=== PATIENT | male | born 1955 | race Caucasian/White ===

== ENCOUNTER → 2020-11-24 07:47 | Outpatient (CLI) | payer MEDICARE, BC, SELFPAY ==
[2018-08-24 12:19] VITALS: BMI 29.0
--- NOTE | 2020-11-24 07:55 | AAVD_ITS ---
Reason For Study: AAA Aorta Measurements Aorta Doppler Measurements Proximal aorta measures1.96 X 1.93cm. in cross- Peak systolic flow velocities within the proximal sectional axis. aorta measure 86.2 cm/sec. Proximal aorta measures1.93cm. in longitudinal Peak systolic flow velocities within the mid aorta axis. measure 95.3 cm/sec. Mid aorta measures1.66 X 1.65cm. in cross- sectional axis. Mid aorta measures1.74cm. in longitudinal axis. Distal aorta measures1.98 X 1.97+cm. in cross- sectional axis. Distal aorta measures1.97cm. in longitudinal axis. Left Iliac Artery Left iliac artery measures 1.31 X 1.48 cm. in the longitudinal axis. Left iliac artery measures 1.4 cm. in the cross-sectional axis. Peak systolic velocity in the left iliac artery measures 104.5 cm/sec. Right Iliac Artery Right iliac artery measures 1.55 X 1.62 cm. in the longitudinal axis. Right iliac artery measures 1.5 cm. in the cross-sectional axis. Peak systolic velocity in the right iliac artery measures 91.7 cm/sec. Procedure Aorta IVC Iliac vasculature or bypass grafts 70614. Exam performed in department. VL/Abd Aortic/IVC Duplex scan Interpretation Summary Maximal aortic dimension distally at 1.98 x 1.97 cm in diameter which is normal . Normal aortic velocity flow. Left common neck 1.31 x 1.48 cm diameter normal Right common iliac 1.55 x 1.62 cm diameter normal Ordering Physician: Antoni Monte Referring Physician: Antoni Monte Performed By: Laila Luna, RDCS, RVT
== END ==
PROVIDERS: PCP Family Medicine; Referring Provider Family Medicine; Visit Provider Family Medicine
DX: Z13.6 Encounter for screening for cardiovascular disorders (principal); Z87.891 Personal history of nicotine dependence; I71.4 Abdominal aortic aneurysm, without rupture
CPT/HCPCS: 93978

== ENCOUNTER 2021-07-15 10:06 | Day surgery (SDC) | payer MEDICARE, BC, SELFPAY ==
[2021-07-15 10:41] VITALS: BP 127/75; PULSE 65; RESP 16; TEMP 36.8; O2SAT 96; BMI 30.7
[2021-07-15] MEDS: Lactated Ringers 1,000 ML 30 ML IV ×2 (11:11→13:15)
[2021-07-15 11:12] LABS: Hematocrit 40.7 % (40-54); Hemoglobin 13.8 g/dL (13.0-16.5); Mean Corp Hgb Conc 33.9 g/dL (32-36); Mean Corpuscular Hgb 29.1 pg (27.0-32.0); Mean Corpuscular Volume 85.9 fL (80-94); Mean Platelet Vol. 9.6 fl (6.2-12.0); Platelet Count 197 K/mm3 (150-450); RBC Distribution Width CV 14.4 % (11.6-14.6); RBC Distribution Width SD 45.1 fl (35.1-43.9); Red Blood Count 4.74 M/mm3 (4.6-6.2); White Blood Count 6.9 K/mm3 (4.4-11.0)
[2021-07-15 11:27] LABS: Anion Gap 4 (5-15); BUN 17 mg/dL (7-18); BUN/Creat Ratio 18.6 RATIO (10-20); Calcium,Total 8.8 mg/dL (8.5-10.1); Chloride 115 mmol/L (98-107); Creatinine, Serum 0.91 mg/dL (0.70-1.30); EST Glomerular Filtration Rate 88 mL/min (>60); Est Glom Filt Rate - Afr Amer 106 mL/min (>60); Estimated Creatinine Clearance 78.77 ml/min; Glucose 116 mg/dL (74-106); Potassium 3.8 mmol/L (3.5-5.1); Sodium Level 144 mmol/L (136-145)
--- NOTE | 2021-07-15 11:50 | HP.PCM_ITS ---
History and Physical Date of Admission: 07/15/21 HISTORY AND PHYSICAL ? Sawyer Elliott 1955 ? ? REFERRING PHYSICIAN: Antoni Monte MD ? CHIEF COMPLAINT: Consult (Umbilical Hernia) ? HPI: Sawyer is a 65 year old male with a complaint of a bulge and discomfort in his umbilical region. The patient notes discomfort in this area with lifting and straining. The symptoms have maintained, over the past few months. ? The patient notes no symptoms of bowel obstruction and denies nausea or vomiting. The patient was seen by his primary care physician who felt the patient has a hernia. Sawyer was referred for evaluation and treatment. ? The patient is being seen by me today at the request of Dr. Antoni Monte MD for my opinion and advice regarding Umbilical hernia without obstruction or gangrene (primary encounter diagnosis). ? ? PAST MEDICAL HISTORY PAST MEDICAL HISTORY Diagnosis Date ? Hypercholesteremia ? ? Hypertension ? ? Prostate cancer (HCC) ? ? ? PAST SURGICAL HISTORY PAST SURGICAL HISTORY Procedure Laterality Date ? PAST SURGICAL HISTORY OF ? child ? Pin in left arm from childhood fracture ? PAST SURGICAL HISTORY OF ? child ? Tonsillectomy ? PROSTATE BIOPSY US ? ? ? PROSTATECTOMY;RADICAL RETROPUBIC ? 2007 ? RETINOPEXY LASER PROPHYLAXIS BREAK(S) OS (LEFT EYE) Left 11/04/2020 ? ? ? CURRENT MEDICATIONS Current Outpatient Medications Medication Sig ? amLODIPine (NORVASC) 5 mg tablet Take 10 mg by mouth once daily. ? ? lovastatin (MEVACOR) 20 mg tablet Take 40 mg by mouth daily at bedtime. ? lisinopril-hydrochlorothiazide (PRINZIDE) 20-12.5 mg per tablet Take 1 tablet by mouth once daily. ? multivitamin tablet Take 1 tablet by mouth once daily. ? OTC NUTRITIONAL SUPPLEMENT Tumeric supplement daily ? ? turmeric (CURCUMIN MISC) 500 mg once daily. ? cyanocobalamin (VITAMIN B-12) 1,000 mcg tab Take 1,000 mcg by mouth once daily. ? No current facility-administered medications for this visit. ? ? ALLERGIES: Patient has no known allergies. ? PERSONAL HISTORY: SOCIAL HISTORY Social History ? Tobacco Use ? Smoking status: Current Every Day Smoker ? ? Packs/day: 0.50 ? ? Years: 20.00 ? ? Pack years: 10.00 ? ? Types: Cigarettes ? Smokeless tobacco: Never Used Vaping Use ? Vaping Use: Never used Substance Use Topics ? Alcohol use: Yes ? ? Comment: socially 1-2 beers per month in the summer ? Drug use: No ? FAMILY HISTORY: FAMILY HISTORY FAMILY HISTORY Problem Relation Age of Onset ? Prostate Cancer Father 70 ? Cancer Mother ? ? lung with mets to brain ? No Ocular Disease No Family History ? ? ? REVIEW OF SYMPTOMS: The review of systems data was entered by the nurse and reviewed by me ? Nursing Notes: Jovita Mejia 05/31/2021 8:54 AM Signed REVIEW OF SYSTEMS: General: The patient denies fatigue, denies weight loss, denies weight gain, denies feeling hot, and denies feelings of cold. Eyes: The patient denies glaucoma, NOTES eye injury/surgery, wears glasses or contacts. Ear/Nose/Throat: The patient denies allergies, denies hayfever, denies ear infections, and denies bloody noses. Cardiovascular: The patient denies chest pain, denies heart disease, NOTES high blood pressure,denies cardiac stent, denies prior heart attack, denies irregular heart beat, NOTES high cholesterol, denies poor circulation, denies heart failure, other cardiac issues, denies claudication, denies cold feet, denies peripheral arterial stent. Respiratory: The patient denies tuberculosis, denies pneumonia, denies frequent cough, denies pulmonary embolism, denies shortness of breath, and denies coughing up blood. Gastrointestinal: The patient denies difficulty swallowing, denies acid reflux, denies ulcers, denies vomiting, denies jaundice/hepatitis, denies gallbladder problems, denies black or tarry stools, denies hemorrhoids, denies bleeding from rectum, denies diverticulitis, denies constipation, denies diarrhea, denies loss of stool control, and NOTES hernias. Kidney/Bladder: The patient denies kidney stones, denies urine infections, and denies bloody urine. Skin: The patient denies a history of skin cancer, denies bleeding/changing moles, and denies a history of skin rash. Neurologic: The patient denies a history of epilepsy/convulsions, denies headaches, denies head/spinal injuries, and denies stroke/TIA. Psychiatric: The patient denies psychiatric medications, denies depression, and denies voices, denies substance abuse. Endocrine: The patient denies thyroid disorders, denies diabetes, and denies hormonal problems. Hematologic: The patient denies a history of bruising, denies bleeding, and denies anemia, denies blood clots. Infections: The patient NOTES a history of measles and mumps, denies rheumatic fever, and denies sexually transmitted diseases. Musculoskeletal: The patient denies back pain/injury, denies back problems, denies sciatica, denies knee/foot trouble, denies arthritis, or denies gout. ? ? When was patient's last Mammogram screening? N/A ? Last Colonoscopy: 03/22 ? Jovita Mejia ? PHYSICAL EXAMINATION: ? General: The patient is 65 year old male, well nourished, well hydrated in no acute distress. The patient is oriented to time, place, and person. ? VITALS: Blood pressure 153/82, pulse 99, temperature 36.8 ?C (98.3 ?F), height 175.3 cm (5' 9), weight 95.7 kg (211 lb), SpO2 97 %. Body mass index is 31.16 kg/m?. ? HEENT: Normal cephalic, ataumatic, pupils are equally round, sclera are anicteric, mucous membranes are moist, oropharynx is clear. Neck has no masses, asymmetry or lymphadenopathy. Thyroid is unremarkable. ? Respiratory: Clear to auscultation and percussion. Normal respiratory excursion and pattern. ? Cardiac: Examination is regular rate and rhythm. ? Abdominal exam: Soft, nontender, with no palpable masses. No hepatosplenomegaly. A large, reducible umbilical hernia, no right or left inguinal hernias are noted ? Rectal exam: exam deferred ? Extremities: no clubbing, cyanosis or edema. No adenopathy. ? Other: ? ? LABORATORY VALUES: As Noted ? RADIOLOGIC STUDIES: As Noted ? Assessment IMPRESSION: umbilical hernia ? PLAN: My plan is to perform a umbilical hernia repair with mesh. The planned surgical procedure was discussed extensively with the patient. The risks, benefits, anticipated outcomes and possible complications were mentioned. Sawyer blackands that all hernia repair surgery has a chance of recurrence and/or chronic post operative pain. My staff has also explained the procedure in understandable terms and the patient was given the option to take printed material concerning the planned procedure. The patient had the opportunity to ask questions concerning the planned procedure. The patient freely consents to the planned procedure. ? A letter was sent to Dr. Antoni Monte MD indicating the above finding for this patient. ? Diagnoses: (K42.9) Umbilical hernia without obstruction or gangrene (primary encounter diagnosis) ? Anticipated CPT Code: umbilical hernia repair - with mesh, no add on - [id number] ? Anticipated Anesthetic: General ? Patient weight: Blood pressure 153/82, pulse 99, temperature 36.8 ?C (98.3 ?F), height 175.3 cm (5' 9), weight 95.7 kg (211 lb), SpO2 97 %. BMI: Body mass index is 31.16 kg/m?. ? Planned antibiotic: Ancef 2gm IVPB aviation electrical technician to OR ? SCDs needed - Yes Return to Clinic: The patient is instructed to follow-up with me 1 week post operatively. ? COVID (Procedure Consent) Procedure Criteria ? Procedure Criteria: Yes Elective The surgeon/proceduralist and patient have discussed in detail the risk of exposure to and/or potential harm posed by the COVID-19 virus with having a surgery/procedure at this time versus the risk of? delaying the surgery/procedure. It is not possible to know either the risk of delaying the surgery or procedure or chance of getting an infection with perfect accuracy, but a joint decision was made between the patient and the surgeon/proceduralist ?to proceed at this time with the scheduled surgery/procedure as indicated on the consent form. ? ? Jason Barrientos III, MD I have re-examined the patient. There are no clinical changes since date of exam.
[2021-07-15] MEDS: Cefazolin 2 GM in 0.9% Normal Saline 100 ML IV (12:09)
--- NOTE | 2021-07-15 12:09 | EKG12_ITS ---
Test Reason : PREOP Blood Pressure : / mmHG Vent. Rate : 064 BPM Atrial Rate : 064 BPM P-R Int : 144 ms QRS Dur : 108 ms QT Int : 446 ms P-R-T Axes : 031 -16 027 degrees QTc Int : 460 ms Normal sinus rhythm Nonspecific ST abnormality Abnormal ECG Confirmed by ROSALES MULLEN, JOSE ([id number]), brands editor LUZ MARINA MCMILLAN ([id number]) on 07/19/2021 8:50:45 AM Referred By: Jason Barrientos Confirmed By:JOSE CABA MD
[2021-07-15] MEDS: Bupivacaine 0.5% PF 10 ML VIAL (12:21)
--- NOTE | 2021-07-15 12:52 | PCM.OPRPT ---
Problems Associated Problem List Diagnoses (1) Umbilical hernia without obstruction and without gangrene: Report of Operation Date of Procedure: 07/15/21 Pre-Operative Diagnosis: Umbilical hernia Post-Operative Diagnosis: Same Surgery/Procedure Performed:: Umbilical hernia repair with mesh Surgeon: Jason Barrientos Anesthesiologist: Phil Holder Estimated Blood Loss (mL): < 25 cc Description of Procedure: Patient brought in the operating room. Placed in supine position. Under excellent general anesthetic the abdomen was sterilely prepped and draped in usual fashion. Local was injected infraumbilically. Curvilinear incision was made. Dissection was carried down to the fascia. I detached the umbilical skin from the hernia itself I placed the hernia back into its preperitoneal space without difficulty. I fashioned a large circular mesh into the preperitoneal space that I created. It laid completely flat it looked awesome. Little to no blood loss. I circumferentially tacked it to the fascia using #1 Nurolon's. I injected more local into the fascial edges. I brought the umbilicus back down to the fascia tacking it down with a 2-0 Vicryl. Deep dermal stitches of 3-0 Vicryl running 4-0 Monocryl in the skin Steri-Strips were applied sterile dressings were applied and the patient tolerated the procedure well. Admit VTE Documentation VTE Present on Admission: No VTE Mechan Device Prophylaxis: SCD's VTE Pharm Prophylaxis ordered?: No Reason prophylaxis not ordered:: Treatment Not Indicated
--- NOTE | 2021-07-15 12:57 | DCINST_ITS ---
Discharge Instructions Procedure Hernia Diet Discharge Diet: Light diet - advance as tolerated Activity Discharge Activity: Return to Normal Activity, May Drive (when you are no longer taking narcotic pain medications.) and May Shower (with the bandage in place 1-2 days after surgery.) Lifting Restrictions: 20 pounds for 8 weeks. Additional Activity Instructions:: Climbing stairs is fine, walking is e ncouraged. Sitting in bed may be uncomfortable. Sitting up using your lateral muscles (sitting up sideways) is usually more comfortable. Do not drive, work heavy equipment of sign legal documents for 24 hours. If your hernia repair was an ingunial repair, you may have scrotal swelling, an ice pack and/or athletic support can provide more comfort. Pain medications may cause nausea, you should typically eat light foods as you take your pain medications. Pain medications may also cause constipation. If you have difficulty with this, discuss with your doctor. Dressing / Incision Call your doctor if your incision/area has: Continuous Slow Oozing, Sudden Increased Bleeding, Increased Pain/ Swelling, Increased Redness and Foul Smelling Discharge Call your doctor if you observe: Fever of 101 or Higher Suture Line Care: Avoid Pulling/Pushing and Avoid Pinching/Bending Additional Dressing/Incision Instructions:: Leave the operative bandage on for 2-3 days. When you remove the bandage, leave the steri-strips on place until your follow up appointment or they fall off. Follow Up Care Please Follow Up With: Sophie Baxter PA-C When: Call office to schedule an appointment to be seen in 7 days. Test Results: Test results from this visit will be discussed in further detail at your follow-up appointment, if applicable. Discharge Plan Admission Attending Provider: Jason Barrientos Primary Care Provider: Antoni Monte Discharge Orders/Prescriptions Prescriptions: New oxycodone-acetaminophen [Endocet] 5-325 mg tablet 1 tab PO Q4H PRN (Reason: pain) 5 Days Qty: 20 RF: 0 No Action lovastatin 20 MG tablet 40 mg PO QHS RF: 0 Centrum Silver 1 EACH tablet 1 ea PO DAILY RF: 0 Lisinopril/Hydrochlorothiazide [Zestoretic 20/12.5 Tablet] 1 TABLET tablet 1 tab PO DAILY RF: 0 amlodipine 10 mg Tablet 10 mg PO DAILY RF: 0 Referrals / Follow Up: Antnoi Monte MD [Primary Care Provider] - Sophie Baxter PAShawnC [PHYSICIAN TESTER COMPRESSED GASES] - Disposition Discharge Orders: Discharge Patient (Routine); Ordered 07/15/21 Ordered By: Dr. Jason Barrientos
[2021-07-15 13:15] VITALS: BP 117/77; BP 127/75; PULSE 87; RESP 16; TEMP 37.2; O2SAT 92
[2021-07-15 13:30] VITALS: BP 121/82; BP 127/75; PULSE 74; RESP 16; O2SAT 90
[2021-07-15 13:45] VITALS: BP 127/75; BP 128/84; PULSE 76; RESP 16; O2SAT 92
[2021-07-15 13:48] VITALS: BP 127/75; BP 127/84; PULSE 72; RESP 16; TEMP 36.7; O2SAT 93
[2021-07-15 15:03] VITALS: BP 127/75; BP 139/71; PULSE 77; RESP 16; TEMP 37.7; O2SAT 93
== END 2021-07-15 15:26 | disposition home or self-care (01) ==
LOC: SDC 10:09 → AC 10:10
PROVIDERS: Anesthesiology; PCP Family Medicine; Referring Provider Surgery; Visit Provider Surgery
PROC: (CPT 49585; principal; 2021-07-15 11:45)
DX: K42.9 Umbilical hernia without obstruction or gangrene (principal); I10 Essential (primary) hypertension; E78.00 Pure hypercholesterolemia, unspecified; F17.210 Nicotine dependence, cigarettes, uncomplicated; Z79.899 Other long term (current) drug therapy
CPT/HCPCS: 49585; 00830; 80048; 85027; 93005; J7120; C1781; J2405